=== PATIENT | male | born 1985 | race American Indian/Alaskan Native ===

== ENCOUNTER 2023-06-06 23:44 | Emergency (ER) | payer BC, OTHER ==
[2023-06-07] MEDS ORDERED: Lidocaine 1% with EPINEPHrine 1:100,000 20 ML MDV INJECT ONE (00:19)
[2023-06-07] MEDS ORDERED: Bacitracin Oint 1 GM U/D Packet TOP ONE (00:20)
[2023-06-07] MEDS ORDERED: Take Home: Sulfamethoxazole/Trimethoprim 800-160 MG Tab, 6 Tab Pack PO ONE (00:50)
== END 2023-06-07 01:05 | disposition home or self-care (01) ==
LOC: DL.ED 23:44
DX: S81.041A Puncture wound with foreign body, right knee, initial encounter (principal); W45.8XXA Other foreign body or object entering through skin, initial encounter
CPT/HCPCS: 10120; 99282; 99283; A9270-GY; J3490